=== PATIENT | female | born 1985 | race African-American/Black ===

== ENCOUNTER 2021-05-14 18:58 | Observation (INO) | payer OTHER, SELFPAY ==
--- NOTE | 2021-05-14 18:58 | OBADM ---
This patient, Mita Zayas, admitted to the OB room [facility] for observation. Patient/family oriented to hospital policies and general routines including ID bracelet, bed and alarms, visiting hours, pain management, procedures, bathroom and other care routines, personal items, smoking policy, room service/diet, and visiting hours. Patient/Family are encouraged to report perceived risks to care and to ask questions if they do not understand what they are told or what they should do.
[2021-05-14 20:00] VITALS: BP 105/62; PULSE 80
[2021-05-14 20:31] VITALS: BMI 28.8
--- NOTE | 2021-05-14 20:38 | PC.NURSE ---
Patient states she has been dizzy for past 2 months. States has had vaginal pressure for past 3 weeks and noted leakage of fluid yesterday. Pt states she in concerned baby is not moving a much as previous. Baby has Trisomy 18.
--- NOTE | 2021-05-18 08:23 | PM.OBTRLD ---
OB - Triage/Final Diagnosis Visit Information Comments/Additional reasons for admission: I have assessed the risk for this patient, Mita Zayas, and determined that she would benefit from observation care. Final Diagnosis (1) Trisomy 18 of fetus in current : Code(s): O35.1XX0 - Maternal care for (suspected) chromosomal abnormality in fetus, not applicable or unspecified Status: Acute (2) Dehydration: Code(s): E86.0 - Dehydration Status: Acute (3) Cramping affecting , antepartum: Code(s): O26.899 - Other specified related conditions, unspecified trimester; R10.9 - Unspecified abdominal pain Status: Acute
== END 2021-05-14 20:55 | disposition home or self-care (01) ==
PROVIDERS: Admitting Provider Obstetrics & Gynecology; PCP Emergency Medicine; Visit Provider Obstetrics & Gynecology
DX: O35.1XX0 Maternal care for (suspected) chromosomal abnormality in fetus, not applicable or unspecified (principal); O26.899 Other specified pregnancy related conditions, unspecified trimester; E86.0 Dehydration; R10.9 Unspecified abdominal pain; Z3A.00 Weeks of gestation of pregnancy not specified
CPT/HCPCS: 84112; G0378; G0379